=== PATIENT | female | born 1980 | race American Indian/Alaskan Native ===

== ENCOUNTER 2016-06-09 13:34 | Emergency (ER) | payer MEDICAID, OTHER ==
[2016-06-09 13:43] VITALS: RESP 18
[2016-06-09] MEDS ORDERED: Sodium Chloride 0.9% 1,000 ML IV ONE (14:03)
[2016-06-09 14:27] LABS: BASO % 0.6 % (0.0-2.0); EOS # 0.1 K/uL (0.0-0.7); EOS % 1.6 % (0.0-4.0); HEMATOCRIT 36.9 % (34.0-47.0); LYMPH # 1.8 K/uL (1.0-4.3); LYMPH % 29.3 % (20.0-40.0); MEAN CELL VOLUME 96.4 fL (81.0-99.0); MEAN CORPUSCULAR HGB CONC 33.2 g/dL (33.0-37.0); MEAN PLATELET VOLUME 7.6 fL (7.2-11.7); MONO # 0.6 K/uL (0.0-0.8); MONO % 9.8 % (0.0-10.0); RED CELL DISTRIBUTION WIDTH 13.2 % (11.5-14.5); WHITE BLOOD COUNT 6.2 K/uL (4.8-10.8)
[2016-06-09 14:34] LABS: RBC URINE 6 /hpf (0-3); URINE BACTERIA RARE (<OCC); URINE BILIRUBIN NEGATIVE (NEGATIVE); URINE BLOOD NEGATIVE (NEGATIVE); URINE COLOR Yellow (YELLOW); URINE GLUCOSE (UA) NORMAL (Normal); URINE KETONE NEGATIVE (NEGATIVE); URINE LEUKOCYTE ESTERASE TRACE Leu/uL (Negative); URINE PROTEIN NEGATIVE (NEGATIVE); URINE UROBILINOGEN NORMAL mg/dL (0.2-1.0); WBC URINE 11 /hpf (0-5)
[2016-06-09 14:38] LABS: CHLORIDE 103 mmol/L (98-107); POTASSIUM 3.8 mmol/L (3.6-5.2); SODIUM 139 mmol/L (132-148)
[2016-06-09 14:41] LABS: ALB/GLOB RATIO 1.3 (1.0-2.1); ALKALINE PHOSPHATASE 42 U/L (38-126); ALT/SGPT 11 U/L (9-52); AST/SGOT 18 U/L (14-36); BILIRUBIN,TOTAL 0.5 mg/dL (0.2-1.3); BLOOD UREA NITROGEN 9 mg/dL (7-17); CARBON DIOXIDE 25 mmol/L (22-30); GFR AFRICAN-AMERICAN > 60; GLUCOSE,RANDOM 87 mg/dL (65-105); TOTAL PROTEIN 6.6 g/dL (6.3-8.3)
[2016-06-09 14:42] LABS: CALCIUM 8.2 mg/dl (8.6-10.4)
--- NOTE | 2016-06-09 15:22 | RAD ---
HISTORY: weight loss COMPARISON: No prior. TECHNIQUE: Chest PA and lateral FINDINGS: LUNGS: No active pulmonary disease. PLEURA: No significant pleural effusion identified. No pneumothorax apparent. CARDIOVASCULAR: Normal. OSSEOUS STRUCTURES: No significant abnormalities. VISUALIZED UPPER ABDOMEN: Normal. OTHER FINDINGS: None. IMPRESSION: No active disease.
--- NOTE | 2016-06-09 15:29 | C.PDOC ---
History Of Present Illness 36 y/o female PMHx uterine fibroids, prolonged menses, presents to ED with complaint of generalized weakness. Patient states she has lost significant amount of weight over last 6-8 months, about 20 lbs. Pt states she recently moved back to [place] from [place], no f/u with PMD. Notes feeling stressed and depressed recently, noting she is currently unemployed. Denies fever, chills, headache, chest pain, SOB, nausea, vomiting, or other associated symptoms. Time Seen by Provider: 06/09/16 13:51 Chief Complaint (Nursing): Weakness/Neurological Deficit History Per: Patient History/Exam Limitations: no limitations Onset/Duration Of Symptoms: Days Current Symptoms Are (Timing): Still Present Recent travel outside of the [facility]: No Past Medical History Reviewed: Historical Data, Nursing Documentation, Vital Signs Vital Signs: Last Vital Signs Temp 98.3 F 06/09/16 15:38 Pulse 53 L 06/09/16 15:38 Resp 18 06/09/16 15:38 BP 102/65 06/09/16 15:38 Pulse Ox 100 06/09/16 15:38 Family History: States: Unknown Family Hx - Social History Hx Alcohol Use: No Hx Substance Use: No - Immunization History Hx Tetanus Toxoid Vaccination: No Hx Influenza Vaccination: No Hx Pneumococcal Vaccination: No Review Of Systems Constitutional: Positive for: Weakness, Weight loss. Negative for: Fever Cardiovascular: Negative for: Chest Pain Respiratory: Negative for: Cough, Shortness of Breath, Wheezing Gastrointestinal: Negative for: Nausea, Vomiting, Abdominal Pain Skin: Negative for: Rash Neurological: Negative for: Headache, Dizziness Physical Exam - Physical Exam Appears: Non-toxic, No Acute Distress, Other (tearful, thin, not cachectic or wasting) Skin: Normal Color, Warm, Dry Head: Atraumatic, Normacephalic Eye(s): bilateral: Normal Inspection Oral Mucosa: Moist Throat: Normal, No Erythema, No Exudate Chest: Symmetrical Cardiovascular: Rhythm Regular Respiratory: Normal Breath Sounds, No Rales, No Rhonchi, No Wheezing Gastrointestinal/Abdominal: Soft, No Tenderness, No Guarding, No Rebound Back: Normal Inspection Extremity: Normal ROM, Capillary Refill (< 2 sec. ) Neurological/Psych: Oriented x3, Normal Speech, Normal Cognition ED Course And Treatment - Laboratory Results Result Diagrams: 06/09/16 14:22 06/09/16 14:22 O2 Sat by Pulse Oximetry: 99 (RA) Pulse Ox Interpretation: Normal Medical Decision Making Medical Decision Making: Plan: * Labs * Crisis eval * cxr * Reassess Progress: Disposition Counseled Patient/Family Regarding: Studies Performed, Diagnosis, Need For Followup - Disposition Referrals: [facility] at [facility] [Outside] Disposition: HOME/ ROUTINE Disposition Time: 16:32 Condition: STABLE Additional Instructions: Please follow up at [facility] Mental health service in [place], [place] Address: [address] [place], [place] [id number] Instructions: Fatigue (ED), Weakness (ED) Forms: General Discharge Instructions - POA Present On Arrival: None - Clinical Impression Clinical Impression: Generalized weakness - Scribe Statement The provider has reviewed the documentation as recorded by the Olgaibsergio Sellers Provider Scribe Attestation: All medical record entries made by the Scribe were at my direction and personally dictated by me. I have reviewed the chart and agree that the record accurately reflects my personal performance of the history, physical exam, medical decision making, and the department course for this patient. I have also personally directed, reviewed, and agree with the discharge instructions and disposition.
[2016-06-09 15:39] VITALS: BP 102/65; PULSE 53; TEMP 98.3
[2016-06-09 16:34] VITALS: O2SAT 99
== END 2016-06-09 16:41 | disposition home or self-care (01) ==
LOC: C.ER 13:34
DX: R53.1 Weakness (principal)
CPT/HCPCS: 71020; 80053; 80324; 80345; 80346; 80349; 80353; 80358; 80361; 81001; 83992; 84703; 85025; 96360; 99284; J7040

== ENCOUNTER 2016-07-14 22:31 | Emergency (ER) | payer SELFPAY ==
[2016-07-14 23:16] VITALS: O2SAT 100
[2016-07-15] MEDS ORDERED: Sodium Chloride 0.9% 1,000 ML IV ONE (00:52)
--- NOTE | 2016-07-15 00:52 | C.PDOC ---
History Of Present Illness Patient presents to the ER with a complaint of generalized weakness and malaise that has worsened over the last few weeks. Patient also reports she has lost 20 pounds unintentionally over the last few months. Denies fever, chills, nausea, vomiting or diarrhea. Time Seen by Provider: 07/15/16 00:52 Chief Complaint (Nursing): Medical Clearance History Per: Patient History/Exam Limitations: no limitations Onset/Duration Of Symptoms: Days (Months) Current Symptoms Are (Timing): Still Present Recent travel outside of the [place]: No Past Medical History Reviewed: Historical Data, Nursing Documentation, Vital Signs Vital Signs: Last Vital Signs Temp 98.2 F 07/15/16 03:30 Pulse 75 07/15/16 03:30 Resp 16 07/15/16 03:30 BP 122/76 07/15/16 03:30 Pulse Ox 100 07/15/16 03:30 - Medical History PMH: No Chronic Diseases Surgical History: No Surg Hx Family History: States: No Known Family Hx - Social History Hx Alcohol Use: No Hx Substance Use: No - Immunization History Hx Tetanus Toxoid Vaccination: No Hx Influenza Vaccination: No Hx Pneumococcal Vaccination: No Review Of Systems Constitutional: Positive for: Weakness, Malaise, Weight loss. Negative for: Fever, Chills Cardiovascular: Negative for: Chest Pain Gastrointestinal: Negative for: Nausea, Vomiting, Diarrhea Musculoskeletal: Positive for: Back Pain Skin: Negative for: Rash, Lesions, Jaundice Neurological: Positive for: Weakness Psych: Negative for: Anxiety Physical Exam - Physical Exam Appears: Non-toxic Skin: Warm, Dry Eye(s): bilateral: Normal Inspection Oral Mucosa: Moist Tongue: Normal Appearing Lips: Normal Appearing Teeth: Normal Dentition Throat: No Erythema Neck: Trachea Midline, Supple Chest: Symmetrical, No Tenderness Cardiovascular: Rhythm Regular, No Murmur Respiratory: No Rales, No Rhonchi, No Wheezing Gastrointestinal/Abdominal: Soft, No Tenderness Extremity: Normal ROM Extremity: Bilateral: Atraumatic, Normal Color And Temperature Neurological/Psych: Oriented x3, Normal Speech, Normal Cognition Gait: Steady ED Course And Treatment - Laboratory Results Result Diagrams: 07/15/16 01:28 07/15/16 02:01 O2 Sat by Pulse Oximetry: 100 Pulse Ox Interpretation: Normal Progress Note: Blood work and urinalysis ordered. IV fluids administered. Reevaluation Time: 04:56 Reassessment Condition: Improved Disposition Counseled Patient/Family Regarding: Studies Performed, Diagnosis, Need For Followup, Rx Given - Disposition Referrals: [facility] at [facility] [Outside] [facility] [Outside] Disposition: HOME/ ROUTINE Disposition Time: 00:52 Condition: FAIR Prescriptions: Polyethylene Glycol 3350 [Miralax] 17 gm PO DAILY #270 ml Instructions: Abdominal Pain (ED), Constipation (DC), Ovarian Cyst (ED) - Clinical Impression Clinical Impression: Abdominal pain, Constipation, Ovarian cyst - Scribe Statement The provider has reviewed the documentation as recorded by the Scribe Nicholas Adrian All medical record entries made by the Scribe were at my direction and personally dictated by me. I have reviewed the chart and agree that the record accurately reflects my personal performance of the history, physical exam, medical decision making, and the department course for this patient. I have also personally directed, reviewed, and agree with the discharge instructions and disposition.
[2016-07-15 01:35] LABS: BASO # 0.1 K/uL (0.0-0.2); BASO % 0.7 % (0.0-2.0); EOS # 0.1 K/uL (0.0-0.7); EOS % 1.2 % (0.0-4.0); HEMATOCRIT 40.9 % (34.0-47.0); LYMPH # 2.8 K/uL (1.0-4.3); LYMPH % 34.4 % (20.0-40.0); MEAN CELL VOLUME 96.3 fL (81.0-99.0); MEAN CORPUSCULAR HEMOGLOBIN 32.3 pg (27.0-31.0); MEAN CORPUSCULAR HGB CONC 33.6 g/dL (33.0-37.0); MEAN PLATELET VOLUME 7.8 fL (7.2-11.7); MONO # 0.8 K/uL (0.0-0.8); MONO % 10.2 % (0.0-10.0); NRBC % 0.1 % (0.0-2.0); RED CELL DISTRIBUTION WIDTH 13.1 % (11.5-14.5); WHITE BLOOD COUNT 8.2 K/uL (4.8-10.8)
[2016-07-15] MEDS ORDERED: Sodium Chloride 0.9% 1,000 ML ONE (01:35)
[2016-07-15 01:37] LABS: INR 1.1
[2016-07-15 02:03] LABS: RBC URINE 23 /hpf (0-3); URINE BACTERIA RARE (<OCC); URINE BILIRUBIN NEGATIVE (NEGATIVE); URINE BLOOD NEGATIVE (NEGATIVE); URINE COLOR Yellow (YELLOW); URINE GLUCOSE (UA) NORMAL (Normal); URINE KETONE NEGATIVE (NEGATIVE); URINE LEUKOCYTE ESTERASE 1+ Leu/uL (Negative); URINE PROTEIN NEGATIVE (NEGATIVE); WBC URINE 52 /hpf (0-5)
[2016-07-15 02:21] LABS: CHLORIDE 102 mmol/L (98-107)
[2016-07-15 02:22] LABS: POTASSIUM 4.3 mmol/L (3.6-5.2); SODIUM 139 mmol/L (132-148)
[2016-07-15 02:24] LABS: ALB/GLOB RATIO 1.5 (1.0-2.1); ALKALINE PHOSPHATASE 50 U/L (38-126); ALT/SGPT 12 U/L (9-52); AST/SGOT 19 U/L (14-36); BILIRUBIN,TOTAL 0.5 mg/dL (0.2-1.3); BLOOD UREA NITROGEN 15 mg/dL (7-17); CARBON DIOXIDE 27 mmol/L (22-30); GFR AFRICAN-AMERICAN > 60; GLUCOSE,RANDOM 69 mg/dL (65-105); TOTAL PROTEIN 6.9 g/dL (6.3-8.3)
[2016-07-15 02:25] LABS: CALCIUM 8.1 mg/dl (8.6-10.4)
[2016-07-15 02:58] LABS: THYROID STIMULATING HORMONE 0.57 mIU/L (0.46-4.68)
[2016-07-15] MEDS ORDERED: Iodixanol 320 MG/ML 100 ML BOTTLE IV ONE (03:34)
[2016-07-15 04:11] VITALS: BP 122/76; PULSE 75; RESP 16; TEMP 98.2
--- NOTE | 2016-07-15 15:09 | CT ---
PROCEDURE: CT abdomen pelvis dated 07/15/2016. HISTORY: abd pain, weight loss COMPARISON: None. TECHNIQUE: Contiguous axial images of the abdomen and pelvis. Oral contrast was administered. No IV contrast given. Coronal and Sagittal reformats generated. Radiation dose: Total exam DLP = 208.36 mGy-cm. This CT exam was performed using one or more of the following dose reduction techniques: Automated exposure control, adjustment of the mA and/or kV according to patient size, and/or use of iterative reconstruction technique. FINDINGS: LOWER THORAX: Lung bases clear without infiltrate effusion or basilar pneumothorax. Tiny hiatal hernia with slight wall thickening of the distal esophagus that could be due to protrusion of gastric mucosa. Esophagitis not excluded. LIVER: Liver exhibits normal size. Mild fatty hepatic infiltration. There is a vague area of low attenuation along the left lobe liver bordering - adjacent to the fissure which may represent some localized fat. The possibility of underlying hepatic hemangioma not excluded. Followup on CT scan at interval could be performed to assess stability. GALLBLADDER AND BILE DUCTS: Gallbladder is incompletely distended likely due to nonfasting state. No definitive intraluminal gallbladder calculi. PANCREAS: Unremarkable. No mass. No ductal dilatation. SPLEEN: Unremarkable. No splenomegaly. ADRENALS: Unremarkable. KIDNEYS AND URETERS: Kidneys demonstrate symmetric nephrograms. No evidence of nephrolithiasis or hydronephrosis. Few tiny sub cm hypodense low-attenuation foci both kidneys , statistically likely representing renal cyst. Followup CT scan could be performed to assess stability. BLADDER: Grossly unremarkable. REPRODUCTIVE: Large presumed right ovarian cyst with thick-walled appearance and suspected small amount of pericystic fluid. Trace amount of fluid in the pelvis. Recommend followup on pelvic ultrasound follow-up to serve as baseline and an additional follow-up ultrasound in 6 weeks to assess resolution. APPENDIX: Appendix is not seen with certainty however no definitive radiographic evidence of appendicitis. The the BOWEL: Evaluation of the bowel is limited due to the lack of oral contrast material. Stomach is incompletely distended which presumably accounts for thick-walled appearance. Multiple of fluid filled nondistended loops of small bowel present. No evidence of acute mechanical bowel obstruction. Large amount of stool is seen throughout the colon consistent with constipation. PERITONEUM: Unremarkable. No fluid collection. No free air. LYMPH NODES: Unremarkable. No enlarged lymph nodes. VASCULATURE: Unremarkable. No aortic aneurysm. BONES: No fracture or destructive lesion. OTHER FINDINGS: None. IMPRESSION: Findings consistent with constipation. Large right ovarian cyst. Follow-up pelvic ultrasound recommended to assess serve as baseline than follow-up ultrasound in 6 weeks to assess resolution. Suspected small amount of pericystic fluid. There is also a trace amount of fluid in the pelvis. Tiny low-attenuation foci both kidneys consistent with wall cysts however followup at interval could be performed to assess stability. On mild fatty hepatic infiltration. Vague area of low attenuation left lobe liver bordering the fissure probably representing fat however followup CT scan recommended to assess stability. Note this report was placed in PA review folder for followup
== END 2016-07-15 05:21 | disposition home or self-care (01) ==
LOC: C.ER 22:31
DX: K59.00 Constipation, unspecified (principal); N83.201 Unspecified ovarian cyst, right side; R10.9 Unspecified abdominal pain
CPT/HCPCS: 74177; 80053; 81001; 83690; 84443; 85025; 85610; 85730; 87040; 87149; 87181; 87205; 96360; 99282; J7040; Q9967

== ENCOUNTER 2016-12-30 18:43 | Emergency (ER) | payer MEDICAID ==
[2016-12-30 18:52] VITALS: BMI 16.5
[2016-12-30 19:09] VITALS: O2SAT 100
--- NOTE | 2016-12-30 19:41 | C.PDOC ---
History Of Present Illness 36 year old male presents to the ED c/o weight loss and anxiety. Patient was seen previously on May 2016 and July 2016 for the same complaints, with normal workups both times. On May 2016 he had a CXR done that was normal and on July he had normal CT abdomen/pelvis done as well. He states being stressed due to family issues at this moment. Time Seen by Provider: 12/30/16 18:56 Chief Complaint (Nursing): Medical Clearance History Per: Patient History/Exam Limitations: no limitations Onset/Duration Of Symptoms: Hrs Current Symptoms Are (Timing): Still Present Reports Recently: Seen In ED (May 2016 and July 2016) Recent travel outside of the [place]: No Additional History Per: Patient Past Medical History Reviewed: Historical Data, Nursing Documentation, Vital Signs Vital Signs: Last Vital Signs Temp 97.5 F L 12/30/16 22:00 Pulse 70 12/30/16 22:00 Resp 14 12/30/16 22:00 BP 110/70 12/30/16 22:00 Pulse Ox 100 12/30/16 22:48 - Medical History PMH: No Chronic Diseases Surgical History: No Surg Hx Family History: States: Unknown Family Hx - Social History Hx Alcohol Use: No Hx Substance Use: No - Immunization History Hx Tetanus Toxoid Vaccination: No Hx Influenza Vaccination: No Hx Pneumococcal Vaccination: No Review Of Systems Constitutional: Positive for: Weight loss. Negative for: Fever, Chills, Weakness Cardiovascular: Negative for: Chest Pain, Palpitations Respiratory: Negative for: Cough, Shortness of Breath Gastrointestinal: Negative for: Nausea, Vomiting, Abdominal Pain Neurological: Negative for: Weakness, Numbness Psych: Positive for: Anxiety. Negative for: Suicidal ideation Physical Exam - Physical Exam Appears: Non-toxic, No Acute Distress, Other (Thin) Skin: Normal Color, Warm, Dry Head: Atraumatic, Normacephalic Oral Mucosa: Moist Teeth: Caries (Multiple with filling), No Other (No infections) Gingiva: No Swelling Throat: Normal, No Erythema, No Exudate Neck: Normal ROM, Supple Lymphatic: No Adenopathy Chest: Symmetrical Cardiovascular: Rhythm Regular, No Murmur Respiratory: Normal Breath Sounds, No Rales, No Rhonchi, No Wheezing Gastrointestinal/Abdominal: Soft, No Tenderness Extremity: Normal ROM, No Pedal Edema, No Calf Tenderness, No Swelling Neurological/Psych: Oriented x3, Normal Speech, Normal Cognition Gait: Steady ED Course And Treatment - Laboratory Results Result Diagrams: 12/30/16 19:59 12/30/16 19:59 Lab Interpretation: Normal (ua/tox/etoh neg.) Urine POC: Negative O2 Sat by Pulse Oximetry: 100 (On RA) Pulse Ox Interpretation: Normal Reevaluation Time: 22:46 Reassessment Condition: Improved - Physician Consult Information Outcome Of Conversation: [id number]: 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 Verbalized understanding. Again, denies SI/HI Medical Decision Making Medical Decision Making: Impression : 36 y/o male c/o weight loss ands anxiety. Plan: * Blood work ordered * UA ordered anxiety, chronic thin but no acute medical issues noted. Disposition Doctor Will See Patient In The: Office Counseled Patient/Family Regarding: Studies Performed, Diagnosis - Disposition Referrals: [facility] [Outside] [facility] [Outside] [facility] [Outside] Disposition: HOME/ ROUTINE Disposition Time: 22:48 Condition: GOOD Additional Instructions: please follow-up as outpatient with our psych services as instructed by Sigifredo from our Crisis Dept. Return to ED for any significant changes or worstening of your condition. Instructions: Anxiety (ED) Forms: [facility] (Surinamese) - Clinical Impression Clinical Impression: Anxiety - Scribe Statement The provider has reviewed the documentation as recorded by the Scribe Alfredo Akers All medical record entries made by the Scribe were at my direction and personally dictated by me. I have reviewed the chart and agree that the record accurately reflects my personal performance of the history, physical exam, medical decision making, and the department course for this patient. I have also personally directed, reviewed, and agree with the discharge instructions and disposition.
[2016-12-30 20:03] LABS: BASO # 0.1 K/uL (0.0-0.2); BASO % 0.7 % (0.0-2.0); EOS # 0.1 K/uL (0.0-0.7); EOS % 1.3 % (0.0-4.0); LYMPH # 2.2 K/uL (1.0-4.3); LYMPH % 24.9 % (20.0-40.0); MEAN CELL VOLUME 96.1 fL (81.0-99.0); MEAN CORPUSCULAR HEMOGLOBIN 32.1 pg (27.0-31.0); MEAN CORPUSCULAR HGB CONC 33.4 g/dL (33.0-37.0); MEAN PLATELET VOLUME 7.5 fL (7.2-11.7); MONO # 0.9 K/uL (0.0-0.8); MONO % 9.7 % (0.0-10.0); NRBC % 0.1 % (0.0-2.0); RED CELL DISTRIBUTION WIDTH 12.9 % (11.5-14.5)
[2016-12-30 20:15] LABS: ALB/GLOB RATIO 1.5 (1.0-2.1); ALCOHOL SERUM < 10 mg/dl (0-10); ALKALINE PHOSPHATASE 45 U/L (38-126); ALT/SGPT 21 U/L (9-52); AST/SGOT 17 U/L (14-36); BILIRUBIN,TOTAL 0.6 mg/dL (0.2-1.3); BLOOD UREA NITROGEN 13 mg/dL (7-17); CALCIUM 8.1 mg/dl (8.6-10.4); CARBON DIOXIDE 24 mmol/L (22-30); CHLORIDE 101 mmol/L (98-107); GFR AFRICAN-AMERICAN > 60; GLUCOSE,RANDOM 73 mg/dL (65-105); POTASSIUM 3.8 mmol/L (3.6-5.2); SODIUM 136 mmol/L (132-148)
[2016-12-30 20:21] LABS: RBC URINE 4 /hpf (0-3); TRANSITIONAL EPITHIAL < 1 /hpf (0-3); URINE BACTERIA FEW (<OCC); URINE BILIRUBIN NEGATIVE (NEGATIVE); URINE BLOOD NEGATIVE (NEGATIVE); URINE COLOR Yellow (YELLOW); URINE GLUCOSE (UA) NORMAL (Normal); URINE KETONE NEGATIVE (NEGATIVE); URINE LEUKOCYTE ESTERASE 1+ Leu/uL (Negative); URINE PROTEIN NEGATIVE (NEGATIVE); URINE UROBILINOGEN NORMAL mg/dL (0.2-1.0); WBC URINE 14 /hpf (0-5)
[2016-12-30 23:05] VITALS: BP 110/70; PULSE 70; RESP 14; TEMP 97.5
== END 2016-12-30 23:06 | disposition home or self-care (01) ==
LOC: C.ER 18:43
DX: F41.9 Anxiety disorder, unspecified (principal)

== ENCOUNTER 2017-06-21 11:58 | Emergency (ER) | payer MEDICAID ==
[2017-06-21 11:58] VITALS: BMI 16.5
[2017-06-21 12:10] VITALS: RESP 20
[2017-06-21] MEDS ORDERED: Sodium Chloride 0.9% 1,000 ML IV ONE (13:07)
[2017-06-21] MEDS ORDERED: Sodium Chloride 0.9% 1,000 ML ONE (13:23)
--- NOTE | 2017-06-21 13:44 | C.PDOC ---
History Of Present Illness 37 year old female presents to the ED for evaluation of generalized weakness which began yesterday. Patient states, "I don't feel good" and reports a decreased appetite. She admits to smoking cigarettes and occasional marijuana use. She denies vomiting, diarrhea, or any specific pain at this time. Patient reports family history of HTN and Cancer. She states her LMP was 4/30. Time Seen by Provider: 06/21/17 12:48 Chief Complaint (Nursing): Weakness/Neurological Deficit History Per: Patient History/Exam Limitations: no limitations Onset/Duration Of Symptoms: Hrs Current Symptoms Are (Timing): Still Present Recent travel outside of the [place]: No Additional History Per: Patient Past Medical History Reviewed: Historical Data, Nursing Documentation, Vital Signs Vital Signs: Last Vital Signs Temp 97.6 F 06/21/17 15:37 Pulse 61 06/21/17 15:37 Resp 20 06/21/17 15:37 BP 95/59 L 06/21/17 15:37 Pulse Ox 100 06/21/17 15:37 - Medical History PMH: No Chronic Diseases Surgical History: No Surg Hx Family History: States: Unknown Family Hx - Social History Hx Alcohol Use: Yes Hx Substance Use: No - Immunization History Hx Tetanus Toxoid Vaccination: No Hx Influenza Vaccination: No Hx Pneumococcal Vaccination: No Review Of Systems Constitutional: Positive for: Weakness, Malaise, Weight loss (2 pounds) Eyes: Negative for: Vision Change ENT: Negative for: Ear Pain Cardiovascular: Negative for: Chest Pain, Palpitations Respiratory: Negative for: Cough, Shortness of Breath Gastrointestinal: Negative for: Vomiting, Abdominal Pain, Diarrhea Genitourinary: Negative for: Dysuria Musculoskeletal: Negative for: Neck Pain, Back Pain Skin: Negative for: Rash Neurological: Negative for: Altered Mental Status, Headache, Dizziness Psych: Negative for: Depression, Psychosis, Withdrawal Physical Exam - Physical Exam Appears: Well, Non-toxic, No Acute Distress Skin: Normal Color, Warm, Dry Head: Atraumatic, Normacephalic Eye(s): bilateral: Normal Inspection, PERRL, EOMI Oral Mucosa: Moist Neck: Normal ROM, Supple Chest: Symmetrical, No Deformity, No Tenderness Cardiovascular: Rhythm Regular, No Murmur Respiratory: Normal Breath Sounds, No Rales, No Rhonchi, No Wheezing Gastrointestinal/Abdominal: Soft, No Tenderness, No Guarding, No Rebound Extremity: Normal ROM, No Tenderness, Capillary Refill (less than 2 seconds ), No Deformity, No Swelling Neurological/Psych: Oriented x3, Normal Speech, Normal Cognition Gait: Steady ED Course And Treatment - Laboratory Results Result Diagrams: 06/21/17 13:37 06/21/17 13:37 Lab Interpretation: No Acute Changes O2 Sat by Pulse Oximetry: 99 (on RA) Pulse Ox Interpretation: Normal Medical Decision Making Medical Decision Making: Impression: 37 year old female with generalized weakness Prior records reviewed and patient has been evaluated for similar presentations with normal workups. Plan: * bloodwork * urinalysis * Zofran IVP * IV Fluids * reassess and disposition Progress: Bloodwork and urinalysis reviewed with no acute findings or changes from prior visits. Normal H/H and no electrolyte abnormality Patient took time to give urine specimen and that was normal. On re-eval patient was resting supine in no distress. She reported feeling unchanged, and denies any pain. I asked further questions regarding any depression or drug use and she denies any SI/HI or wanting to speak with crisis. She states she is just stressed out and unable to fully get rest and eat. Patient advised to follow up with PMD and encouraged to eat and drink fluids. Disposition Counseled Patient/Family Regarding: Diagnosis, Need For Followup, Rx Given - Disposition Referrals: Jerome Cano MD [Medical Doctor] - Disposition: HOME/ ROUTINE Disposition Time: 15:02 Condition: GOOD Additional Instructions: Follow up with your primary medical doctor or clinic in 2-5 days for further evaluation. Be sure to eat nutritious diet and fluids. Return to the emergency department at any time if symptoms persist or worsen. Instructions: Fatigue (DC) Forms: [facility] (Thai), Work Excuse Print Language: CZECH - POA Present On Arrival: None - Clinical Impression Clinical Impression: Fatigue - PA / QUOTATION CLERK / Resident Statement MD/DO has reviewed & agrees with the documentation as recorded. - Scribe Statement The provider has reviewed the documentation as recorded by the Scribe (Elaina Costa) All medical record entries made by the Scribe were at my direction and personally dictated by me. I have reviewed the chart and agree that the record accurately reflects my personal performance of the history, physical exam, medical decision making, and the department course for this patient. I have also personally directed, reviewed, and agree with the discharge instructions and disposition.
[2017-06-21 13:45] LABS: BASO % 0.6 % (0.0-2.0); EOS # 0.1 K/uL (0.0-0.7); HEMOGLOBIN 14.6 g/dL (11.0-16.0); LYMPH # 1.6 K/uL (1.0-4.3); LYMPH % 21.1 % (20.0-40.0); MEAN CELL VOLUME 95.6 fL (81.0-99.0); MEAN CORPUSCULAR HEMOGLOBIN 33.3 pg (27.0-31.0); MEAN CORPUSCULAR HGB CONC 34.8 g/dL (33.0-37.0); MEAN PLATELET VOLUME 7.5 fL (7.2-11.7); MONO # 0.7 K/uL (0.0-0.8); MONO % 9.5 % (0.0-10.0); NEUT # 5.1 K/uL (1.8-7.0); NEUT % 67.8 % (50.0-75.0); NRBC % 0.1 % (0.0-2.0); RBC 4.4 Mil/uL (3.80-5.20); WHITE BLOOD COUNT 7.4 K/uL (4.8-10.8)
[2017-06-21 13:55] LABS: ALB/GLOB RATIO 1.2 (1.0-2.1); ALBUMIN 4.4 g/dL (3.5-5.0); ALT/SGPT 20 U/L (9-52); AST/SGOT 57 U/L (14-36); BLOOD UREA NITROGEN 13 mg/dL (7-17); CALCIUM 8.8 mg/dl (8.6-10.4); GFR AFRICAN-AMERICAN > 60; GFR NON-AFRICAN AMERICAN > 60; LIPASE 122 U/L (23-300)
[2017-06-21 15:20] LABS: HCG,QUALITATIVE URINE NEGATIVE (NEGATIVE)
[2017-06-21 15:26] LABS: SQUAMOUS EPITHIAL 5 /hpf (0-5); URINE BILIRUBIN NEGATIVE (NEGATIVE); URINE BLOOD 1+ (NEGATIVE); URINE CLARITY Hazy (Clear); URINE COLOR Yellow (YELLOW); URINE GLUCOSE (UA) NORMAL (Normal); URINE LEUKOCYTE ESTERASE NEG Leu/uL (Negative); URINE PROTEIN NEGATIVE (NEGATIVE)
[2017-06-21 15:38] VITALS: BP 95/59; PULSE 61; TEMP 97.6
[2017-06-21 16:24] VITALS: O2SAT 99
== END 2017-06-21 15:37 | disposition home or self-care (01) ==
LOC: C.ER 11:58
DX: R53.83 Other fatigue (principal)
CPT/HCPCS: 80053; 81001; 83690; 84703; 85025; 96361; 96374; 99285; J2405; J7040

== ENCOUNTER 2018-01-09 22:04 | Emergency (ER) | payer MEDICAID ==
[2018-01-09 22:05] VITALS: BMI 16.5
[2018-01-09] MEDS ORDERED: Sodium Chloride 0.9% 1,000 ML IV ONE (23:46)
[2018-01-09] MEDS ORDERED: Iohexol 240 (50 ml) PO STA (23:46)
[2018-01-09] MEDS ORDERED: Iohexol 240 (50 ml) ONE (23:59)
[2018-01-10] MEDS ORDERED: Sodium Chloride 0.9% 1,000 ML ONE
--- NOTE | 2018-01-10 00:08 | C.PDOC ---
History Of Present Illness 37 year old female presents to the ER with a complaint of right sided abdominal pain, decreased appetite, and chest tightness for the past 2 days. Patient states she has been under a lot of stress since her boyfriend last summer and she recently lost her job. Patient also reports she had some brownish discharge. Denies , fever, chills, vomiting, diarrhea, or urinary symptoms. Time Seen by Provider: 01/09/18 23:32 Chief Complaint (Nursing): Chest Pain History Per: Patient History/Exam Limitations: no limitations Onset/Duration Of Symptoms: Days (2) Current Symptoms Are (Timing): Still Present Location Of Pain/Discomfort: Other (Right sided) Radiation Of Pain To:: None Quality Of Discomfort: Unable To Describe Associated Symptoms: Loss Of Appetite, Other (Chest tightness, Vaginal discharge. No ). denies: Fever, Chills, Vomiting, Diarrhea, Urinary Sy mptoms Exacerbating Factors: None Alleviating Factors: None Recent travel outside of the [place]: No Abnormal Vaginal Bleeding: No Past Medical History Reviewed: Historical Data, Nursing Documentation, Vital Signs Vital Signs: Last Vital Signs Temp 98.4 F 01/09/18 22:24 Pulse 77 01/09/18 22:24 Resp 18 01/09/18 22:24 BP 120/86 01/09/18 22:24 Pulse Ox 98 01/09/18 22:24 Family History: States: No Known Family Hx - Social History Hx Alcohol Use: Yes Hx Substance Use: No - Immunization History Hx Tetanus Toxoid Vaccination: No Hx Influenza Vaccination: No Hx Pneumococcal Vaccination: No Review Of Systems Constitutional: Positive for: Other (Decreased appetite). Negative for: Fever, Chills Cardiovascular: Negative for: Chest Pain, Palpitations Respiratory: Positive for: Other (Chest tightness). Negative for: Cough, Shortness of Breath Gastrointestinal: Positive for: Abdominal Pain. Negative for: Vomiting, Diarrhea Genitourinary: Positive for: Vaginal Discharge. Negative for: Dysuria, Hematuria Neurological: Negative for: Weakness, Numbness Physical Exam - Physical Exam Appears: Non-toxic, Other (Thin, baseline as per patient) Skin: Normal Color, Warm, Dry Head: Atraumatic, Normacephalic Eye(s): bilateral: Normal Inspection Oral Mucosa: Moist Neck: Normal, Supple Chest: Symmetrical, No Tenderness Cardiovascular: Rhythm Regular Respiratory: Normal Breath Sounds, No Rales, No Rhonchi, No Wheezing Gastrointestinal/Abdominal: Tenderness (RLQ), No Guarding, No Rebound, Other (Tense) Back: No CVA Tenderness Neurological/Psych: Oriented x3, Normal Speech ED Course And Treatment - Laboratory Results Result Diagrams: 01/10/18 00:34 O2 Sat by Pulse Oximetry: 98 (room air) Pulse Ox Interpretation: Normal Progress Note: CT abd/pel, blood work, and urinalysis ordered. IV fluids administered. Disposition - Disposition Disposition Time: 00:44 Condition: STABLE Forms: [employer] (Wolof) - Clinical Impression Clinical Impression: Abdominal pain - Scribe Statement The provider has reviewed the documentation as recorded by the Scribe Nicholas Adrian All medical record entries made by the Scribe were at my direction and pers onally dictated by me. I have reviewed the chart and agree that the record accurately reflects my personal performance of the history, physical exam, medical decision making, and the department course for this patient. I have also personally directed, reviewed, and agree with the discharge instructions and disposition. Physician Patient Turnover Patient Signed Over To: Baldemar Jones Handoff Comments: Pending labs and CT
[2018-01-10 00:26] LABS: HCG,QUALITATIVE URINE NEGATIVE (NEGATIVE)
[2018-01-10 00:28] LABS: SQUAMOUS EPITHIAL < 1 /hpf (0-5); URINE BILIRUBIN NEGATIVE (NEGATIVE); URINE BLOOD 1+ (NEGATIVE); URINE CLARITY Clear (Clear); URINE COLOR Yellow (YELLOW); URINE GLUCOSE (UA) NORMAL (Normal); URINE LEUKOCYTE ESTERASE NEG Leu/uL (Negative); URINE PROTEIN NEGATIVE (NEGATIVE)
[2018-01-10 00:38] LABS: BASO # 0.1 K/uL (0.0-0.2); BASO % 1.3 % (0.0-2.0); EOS # 0.1 K/uL (0.0-0.7); EOS % 1.3 % (0.0-4.0); HEMOGLOBIN 13.1 g/dL (11.0-16.0); LYMPH # 3.3 K/uL (1.0-4.3); LYMPH % 36.1 % (20.0-40.0); MEAN CELL VOLUME 94.3 fL (81.0-99.0); MEAN CORPUSCULAR HEMOGLOBIN 32.2 pg (27.0-31.0); MEAN CORPUSCULAR HGB CONC 34.2 g/dL (33.0-37.0); MEAN PLATELET VOLUME 7.3 fL (7.2-11.7); MONO # 0.8 K/uL (0.0-0.8); MONO % 8.7 % (0.0-10.0); NEUT # 4.8 K/uL (1.8-7.0); NEUT % 52.6 % (50.0-75.0); RBC 4.06 Mil/uL (3.80-5.20); RED CELL DISTRIBUTION WIDTH 13.4 % (11.5-14.5); WHITE BLOOD COUNT 9.2 K/uL (4.8-10.8)
[2018-01-10 02:08] LABS: ALB/GLOB RATIO 1.4 (1.0-2.1); ALBUMIN 4.9 g/dL (3.5-5.0); ALT/SGPT 34 U/L (9-52); AST/SGOT 27 U/L (14-36); BLOOD UREA NITROGEN 11 mg/dL (7-17); CALCIUM 9.2 mg/dl (8.6-10.4); GFR NON-AFRICAN AMERICAN > 60; LIPASE 147 U/L (23-300)
[2018-01-10] MEDS ORDERED: Iodixanol 320 MG/ML 100 ML BOTTLE IV ONE (02:37)
[2018-01-10 04:42] VITALS: BP 103/67; PULSE 54; RESP 16; TEMP 98.1; O2SAT 100
--- NOTE | 2018-01-10 11:26 | CT ---
PROCEDURE: CT Abdomen and Pelvis with oral and IV contrast. HISTORY: abd pain COMPARISON: CT abdomen and pelvis with IV contrast performed 07/15/16 TECHNIQUE: Contiguous axial images of the abdomen and pelvis. Oral and IV contrast was administered. Coronal and Sagittal reformats generated and reviewed. Contrast dose: 100 mL Visipaque Radiation dose: Total exam DLP = 208.05 mGy-cm. This CT exam was performed using one or more of the following dose reduction techniques: Automated exposure control, adjustment of the mA and/or kV according to patient size, and/or use of iterative reconstruction technique. FINDINGS: LOWER THORAX: No visible consolidation, pleural effusion, or pneumothorax. LIVER: Unremarkable. GALLBLADDER AND BILE DUCTS: Unremarkable. PANCREAS: Unremarkable. SPLEEN: 7 mm probable splenule. Otherwise unremarkable. ADRENALS: Unremarkable. KIDNEYS AND URETERS: The kidneys enhance symmetrically. No hydronephrosis or obstructing renal calculus. BLADDER: The urinary bladder appears unremarkable. REPRODUCTIVE: The uterus appears heterogeneous. Approximately 3.1 cm low-density noted in the left adnexal region may reflect cysts however alternatives including hydrosalpinx is not excluded. APPENDIX: The appendix appears within normal limits of caliber. No secondary signs of acute appendicitis. BOWEL: The stomach is nondistended. The bowel loops appear within normal limits of caliber without evidence of intestinal obstruction. Constipation. PERITONEUM: No significant free fluid. No definite free air. LYMPH NODES: No bulky lymphadenopathy identified. VASCULATURE: No aortic aneurysm. No atherosclerotic calcification or mural plaque present. BONES: No acute osseous abnormality is detected. OTHER FINDINGS: None. IMPRESSION: Probable large left ovarian cysts however hydrosalpinx cannot be excluded. Recommend pelvic ultrasound for further evaluation. Constipation. Preliminary impression was provided by [email or web address]. Study marked for PA review.
--- NOTE | 2018-01-11 17:42 | CARD ---
APPROVED REPORT Date of service: 01/09/2018 EKG Measurement Heart [id number] <Conclusion> Normal sinus rhythm Normal ECG
== END 2018-01-10 05:34 | disposition home or self-care (01) ==
LOC: C.ER 22:04
DX: R10.9 Unspecified abdominal pain (principal); K59.00 Constipation, unspecified; N83.209 Unspecified ovarian cyst, unspecified side
CPT/HCPCS: 74177; 80053; 81001; 83690; 84703; 85025; 93005; 96361; 96374; 99285; J1885; J7030; Q9966; Q9967